=== PATIENT | female | born 1970 | race Caucasian/White ===

== ENCOUNTER → 2017-10-03 | Outpatient (CLI) | payer BC ==
[~2017-10-03] MED LIST: FLUO40CA70 PO
--- NOTE | 2017-10-03 16:12 | RADIOLOGY IMAGING REPORT ---
FACILITY: [facility] - [place] PATIENT NAME: Tri Renae : 1970 MR: [id number] V: [id number] EXAM DATE: ORDERING PHYSICIAN: EDD ENGLAND TECHNOLOGIST: Location: [facility] Patient: Tri Renae : 1970 Visit/Account:[id number] Date of Sevice: 10/03/2017 PELVIC HISTORY: Uterine enlargement TECHNIQUE: Transabdominal and transvaginal ultrasound pelvis. COMPARISON: August 09, 2016 FINDINGS: Uterus: ; 10.3 cm length x 5 cm AP x 6.3 cm transverse. Myometrium: At least five fibroids are present. The largest now measures 2.6 times 2.5 x 1.5 cm krista g the anterior aspect of the body/fundus. Endometrium: Unremarkable; double thickness 6.3 mm. Cervix: Nabothian cysts. Ovaries: Right - 3 x 1.4 x 2.2 cm Left - 4.7 x 3.4 x 3.1 cm. There two cysts in the left ovary one appears to represent a septate d cyst measuring 2.9 cm in diameter Blood flow is documented in each ovary by duplex Doppler ultrasound. Adnexa: Grossly unremarkable. Free pelvic fluid: None. IMPRESSION: Multi fibroid uterus, largest measuring 2.6 x 2.5 x 1.5 cm slightly increased in size when compared t he prior study Septated left ovarian cyst measuring 2.9 cm in diameter. Follow-up pelvic ultrasound in 2-3 months r ecommended Report Dictated By: Cher Hermosillo MD at 10/03/2017 4:03 PM Report E-Signed By: Cher Hermosillo MD at 10/03/2017 4:08 PM WSN:[email or web address]
--- NOTE | 2017-10-04 08:27 | RADIOLOGY IMAGING REPORT ---
[place] [facility] [place]IENT NAME: ISABEL VÁZQUEZ : [id number] MR: [id number] V: [id number] EXAM DATE: ORDERING PHYSICIAN: EDD ENGLAND TECHNOLOGIST: Darby Preston PROCEDURE:BILATERAL DIGITAL SCREENING MAMMOGRAM WITH CAD ASSISTED INTERPRETATION & 3D TOMOSYNTHESIS COMPARISON:Prior mammograms 12/23/14, 04/04/13. INDICATIONS:screening FINDINGS: Moderately heterogeneous fibroglandular tissue is seen throughout the breasts. The parenchymal pattern has remained stable allowing for difference in mammographic technique & patient positioning. There is no evidence of malignant appearing mass, malignant appearing calcifications or other secondary sign of malignancy in either breast. DIAGNOSTIC CATEGORY 1--NEGATIVE. RECOMMENDATIONS: ROUTINE MAMMOGRAM AND CLINICAL EVALUATION. IMPRESSION: BIRADS 1: Negative No significant abnormality is seen. Dictated by: Cher Hermosillo M.D. on 10/03/2017 at 17:02 Transcribed by: JEWEL on 10/04/2017 at 8:22 Approved by: Cher Hermosillo M.D. on 10/04/2017 at 8:26 [facility]
== END ==
LOC: MAMO 00:30
PROVIDERS: ATTEND Family Medicine
DX: Z12.31 Encounter for screening mammogram for malignant neoplasm of breast (principal); D25.9 Leiomyoma of uterus, unspecified; N83.202 Unspecified ovarian cyst, left side
CPT/HCPCS: 76856; 77063; 77067